=== PATIENT | female | born 1955 | race Caucasian/White ===

== ENCOUNTER 2019-12-21 15:04 | Outpatient (CLI) | payer BC, SELFPAY ==
--- NOTE | ~2019-12-21 | XR_ITS ---
EXAMINATION: XR chest 2V 12/21/2019 15:34 INDICATION: Cough and chest pain PROCEDURE: 2 view chest COMPARISON: No prior studies for comparison. FINDINGS: The lungs are clear. The cardiomediastinal silhouette is within normal limits. There are no pleural effusions. There is no pneumothorax suspected. IMPRESSION: 1: NO ACUTE CARDIOPULMONARY DISEASE. Reviewed, dictated and finalized at location A.
== END 2019-12-21 15:05 | disposition home or self-care (01) ==
LOC: ANHIMG 15:11
PROVIDERS: PCP Family Medicine; Visit Provider Family Medicine
DX: R05 Cough (principal)
CPT/HCPCS: 71046